=== PATIENT | female | born 1990 | race American Indian/Alaskan Native ===

== ENCOUNTER 2021-03-07 08:38 | Emergency (ER) | payer MEDICAID ==
[2021-03-07 11:15] LABS: Basophils % (Auto) 0.3 % (0.0-1.8); Eosinophils # (Auto) 0.1 K/mm3 (0.0-0.4); Eosinophils % (Auto) 1.2 % (0.0-4.3); Hematocrit 33.1 % (30.3-42.9); Hemoglobin 10.9 gm/dl (10.1-14.3); Lymphocytes # (Auto) 1.9 K/mm3 (1.2-5.4); Lymphocytes % (Auto) 22.4 % (13.4-35.0); Mean Corpuscular HGB Conc 33 % (30-34); Mean Corpuscular Volume 95 fl (79-97); Monocytes # (Auto) 0.8 K/mm3 (0.0-0.8); Monocytes % (Auto) 8.9 % (0.0-7.3); Platelet Count 226 K/mm3 (140-440); Red Blood Count 3.47 M/mm3 (3.65-5.03); Red Cell Distribution Width 13.1 % (13.2-15.2)
[2021-03-07] MEDS ORDERED: ONDANSETRON 4 MG/2 ML INJ IV ONE ×2 (11:50→15:02)
[2021-03-07] MEDS ORDERED: SODIUM CHLORIDE 0.9% 1000 ML 1,000 ML IV ONE ×2 (11:50→15:02)
--- NOTE | 2021-03-07 11:54 | Emergency Department Report ---
ED Syncope HPI - General Chief Complaint: Syncope Stated Complaint: SYNCOPE Time Seen by Provider: 03/07/21 11:09 Source: patient Exam Limitations: no limitations - History of Present Illness Initial Comments: Chief complaint: "I have not been been eating." HPI: This is a 31-year-old female G3, P2 who is 19 weeks 4 days . She passed out briefly yesterday. She has been unable to eat for the last 5 days. She has had morning sickness throughout her . She ran out of [employer]. She has followed by [facility]. She has had mild back pain abdominal pain throughout her . This pain has unchanged. She denies vaginal bleeding. She has had 2 normal ultrasounds during her . She denies chest pain, shortness of breath, leg pain, palpitations Timing/Prior Episodes: other (Single episode yesterday) Precipitating Factors: Positive: lightheadedness Context: standing Loss of Consciousness: brief (seconds) Current Symptoms: back to normal - Related Data Allergies/Adverse Reactions: Allergies No Known Allergies Allergy (Verified 03/07/21 09:49) Home Medications: Ambulatory Orders Ondansetron [Zofran Odt] 4 mg PO Q8HR PRN #30 tab.rapdis 03/07/21 ED Review of Systems ROS: Stated complaint: SYNCOPE Other details as noted in HPI Comment: All other systems reviewed and negative Constitutional: denies: chills, fever, malaise Respiratory: denies: cough, shortness of breath Cardiovascular: denies: chest pain Gastrointestinal: abdominal pain, nausea, vomiting Musculoskeletal: back pain ED Past Medical Hx - Past Medical History Previous Medical History?: No - Surgical History Past Surgical History?: No - Social History Smoking Status: Never Smoker Substance Use Type: None - Medications Home Medications: Home Medications Medication Instructions Recorded Confirmed Last Taken Type Ondansetron [Zofran Odt] 4 mg PO Q8HR PRN #30 tab.rapdis 03/07/21 Unknown Rx ED Physical Exam - General Limitations: No Limitations General appearance: alert, in no apparent distress - Head Head exam: Present: atraumatic, normocephalic - Eye Eye exam: Present: normal appearance - ENT ENT exam: Present: mucous membranes moist - Neck Neck exam: Present: normal inspection, full ROM - Respiratory Respiratory exam: Present: normal lung sounds bilaterally. Absent: respiratory distress, wheezes, rales, rhonchi - Cardiovascular Cardiovascular Exam: Present: regular rate, normal rhythm, normal heart sounds. Absent: systolic murmur, diastolic murmur, rubs, gallop - GI/Abdominal GI/Abdominal exam: Present: soft, distended (Gravid), normal bowel sounds. Absent: tenderness, guarding, rebound - Extremities Exam Extremities exam: Present: normal inspection - Back Exam Back exam: Present: normal inspection, full ROM. Absent: tenderness, CVA tenderness (R), CVA tenderness (L), muscle spasm, paraspinal tenderness, vertebral tenderness, rash noted - Neurological Exam Neurological exam: Present: alert, oriented X3 - Psychiatric Psychiatric exam: Present: normal affect, normal mood - Skin Skin exam: Present: warm, dry, intact, normal color. Absent: rash ED Course Vital Signs 03/07/21 09:44 Temperature 98.9 F Pulse Rate 90 Respiratory 16 Rate Blood Pressure 100/54 O2 Sat by Pulse 100 Oximetry ED Medical Decision Making - Lab Data Result diagrams: 03/07/21 10:44 03/07/21 10:44 - Medical Decision Making Vasovagal syncope versus orthostasis due to hyperemesis gravidarum. Patient received 2 L normal saline 2 doses of IV Zofran. No observed vomiting over the course of 9 hours. Discharged home. CBC chemistry within normal limits. Potassium acceptable level at 3.4. Urinalysis without evidence of infection. hCG positive. Prescribed Zofran. Critical care attestation.: If time is entered above; I have spent that time in minutes in the direct care of this critically ill patient, excluding procedure time. ED Disposition Clinical Impression: Hyperemesis gravidarum, Vasovagal syncope, Second trimester Disposition: 01 HOME / SELF CARE / HOMELESS Is pt being admited?: No Does the pt Need Aspirin: No Condition: Stable Instructions: Syncope (ED), Syncope, [id number], Morning Sickness, Ea sy-to-Read Prescriptions: Ondansetron [Zofran Odt] 4 mg PO Q8HR PRN #30 tab.rapdis PRN Reason: Nausea Referrals: PRIMARY CARE,MD [Primary Care Provider] - 3-5 Days
[2021-03-07 12:02] LABS: HCG Qualitative,Urine Positive (Negative)
[2021-03-07 12:15] LABS: Mucus,Urine 3+ /HPF
[2021-03-07 12:21] LABS: Bilirubin,Urine Small (Negative); Color,Urine Amber (Yellow)
[2021-03-07 12:22] LABS: Blood,Urine Trace (Negative); Protein,Urine >500 mg/dL (Negative)
[2021-03-07 12:28] LABS: Alanine Aminotransferase 16 units/L (7-56); Albumin 4.1 g/dL (3.9-5); Blood Urea Nitrogen 5 mg/dL (7-17); Calcium 9.4 mg/dL (8.4-10.2); Hemolysis Index 10
[2021-03-07 12:31] LABS: Ictotest,Urine Positive (Negative)
[2021-03-07 12:55] LABS: BUN/Creatinine Ratio 13
[2021-03-07 18:45] VITALS: BP 103/45
== END 2021-03-07 18:45 | disposition home or self-care (01) ==
LOC: ED 08:38
DX: O21.0 Mild hyperemesis gravidarum (principal); O26.892 Other specified pregnancy related conditions, second trimester; R55 Syncope and collapse; Z3A.19 19 weeks gestation of pregnancy
CPT/HCPCS: 36415; 80053; 81001; 81025; 85025; 87086; 96361; 96374; 96376; 99283; J2405; J7030; Q0162